=== PATIENT | male | born 1980 | race Caucasian/White ===

== ENCOUNTER 2020-10-14 14:44 | Emergency (ER) | payer SELFPAY ==
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
[2020-10-14] MEDS ORDERED: LORazepam 2 MG/ML VIAL ONE (18:23)
[2020-10-14] MEDS ORDERED: ONDANSETRON 4 MG/2 ML VIAL ONE (18:24)
[2020-10-14] MEDS ORDERED: MORPHINE 4 MG/ML SYR ONE (18:24)
[2020-10-14 18:32] LABS: Absolute Lymphocytes (CBC) 2.7 K/uL (0.7-4.9); Basophils % 0.9 % (0-1.3); Hematocrit 41.4 % (39.6-49.0); Lymphocytes % 30.3 % (15.3-44.8); MPV 8.2 fL (7.6-11.3); RBC Red Blood Cell Count 4.49 M/uL (4.33-5.43)
[2020-10-14 18:58] LABS: Blood Morphology Comment NOT SEEN (NOT SEEN); Platelet Estimate INCR; White Blood Cell Scan OK (OK)
--- NOTE | 2020-10-14 19:01 | EDPHYS ---
Physician Documentation [facility] Name: Cm Jiménez Age: 39 yrs Sex: Male : 1980 Arrival Date: 10/14/2020 Time: 14:46 Bed 29 Private MD: SELINA Physician Edwar Wilson HPI: 10/14 17:57 This 39 yrs old Male presents to ER via Wheelchair with complaints of spider jmm bite on foot. 17:57 The patient presents with pain. Onset: The symptoms/episode began/occurred gradually, 5 jmm day(s) ago. Modifying factors: The symptoms are alleviated by nothing, the symptoms are aggravated by nothing. Associated signs and symptoms: Pertinent positives: swelling, Pertinent negatives: fever. This is a 39 year old male with no chronic medical conditions that presents to the ED with complaints of left foot pain and erythema beginning approx 5 days ago. patient is currently taking doxyxyline and cephalexin. Patient complains of increased pain. Denies fever. . 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 Last tetanus immunization: up to date Flu vaccine is not up to date. - Social history:: Smoking status: Patient denies any tobacco usage or history of. ROS: 17:57 Constitutional: Negative for fever, chills, and weight loss, Cardiovascular: Negative jmm for chest pain, palpitations, and edema, Respiratory: Negative for shortness of breath, cough, wheezing, and pleuritic chest pain. 17:57 MS/extremity: Positive for swelling. 17:57 Skin: Positive for erythema. 17:57 All other systems are negative. Exam: 17:57 Constitutional: This is a well developed, well nourished patient who is awake, alert, jmm and in no acute distress. Head/Face: atraumatic. Eyes: EOMI, no conjunctival erythema appreciated ENT: Moist Mucus Membranes Neck: Trachea midline, Supple Chest/axilla: Normal chest wall appearance and motion. Cardiovascular: Regular rate and rhythm. No edema appreciated Respiratory: Normal respirations, no respiratory distress appreciated Abdomen/GI: Non distended, soft Back: Normal ROM 17:57 Skin: erythema noted to the left foot, non fluctuant abscess noted. 17:57 Neuro: Orientation: is normal, Mentation: is normal, Memory: is normal. 17:57 Psych: Behavior/mood is pleasant, cooperative. Vital Signs: 15:23 BP 106 / 85; Pulse 61; Resp 18; Temp 98.4(TE); Pulse Ox 99% on R/A; Weight 72.57 kg ca1 (R); Height 5 ft. 9 in. (175.26 cm) (R); Pain 9/10; 17:57 BP 110 / 90; Pulse 65; Resp 18; Temp 98.5(TE); Pulse Ox 100% on R/A; Pain 10/10; ld1 19:00 BP 122 / 86; Pulse 68; Resp 18; Pulse Ox 100% on R/A; ld1 15:23 Body Mass Index 23.63 (72.57 kg, 175.26 cm) ca1 MDM: 17:57 Patient medically screened. [facility] 18:58 Data reviewed: vital signs, nurses notes. Counseling: I had a detailed discussion with marah the patient and/or guardian regarding: the historical points, exam findings, and any diagnostic results supporting the discharge/admit diagnosis, lab results, the need for outpatient follow up, to return to the emergency department if symptoms worsen or persist or if there are any questions or concerns that arise at home. ED course: Patient is alert and non toxic in appearance in the ED. Advised to continue with oral abx and perform warm water soaks. Patient is otherwise given strict return precautions. Patient understood and agrees with the plan of care. . 10/14 17:59 Order name: CBC with Diff; Complete Time: 19:06 [facility] 10/14 17:59 Order name: BMP [facility] 10/14 17:59 Order name: Procalcitonin [facility] 10/14 17:59 Order name: Lactate [facility] 10/14 17:59 Order name: US Extrmty Nonvasular Limited [facility] 10/14 18:58 Order name: CBC Smear Scan; Complete Time: 19:06 [facility] 10/14 17:59 Order name: Saline Lock; Complete Time: 18:24 [facility] Administered Medications: 18:24 Drug: Ativan (LORazepam) 1 mg Route: IVP; Site: right antecubital; ld1 18:38 Follow up: Response: No adverse reaction ld1 18:24 Drug: Zofran (Ondansetron) 4 mg Route: IVP; Site: right antecubital; ld1 18:38 Follow up: Response: No adverse reaction ld1 18:24 Drug: morphine 4 mg Route: IVP; Site: right antecubital; ld1 18:38 Follow up: Response: No adverse reaction ld1 Disposition: 10/15 09:32 Co-signature as Attending Physician, Edwar Wilson MD I agree with the assessment and ramya plan of care. Disposition: 10/14/20 19:01 Discharged to Home. Impression: Cutaneous abscess of left foot. - Condition is Stable. - Discharge Instructions: Skin Abscess. - Prescriptions for orphenadrine citrate 100 mg Oral Tablet Sustained Release - take 1 tablet by ORAL route 2 times per day As needed; 20 tablet. - Medication Reconciliation Form, Thank You Letter, Antibiotic Education, Prescription Opioid Use form. - Follow up: Lawson Robison MD; When: 2 - 3 days; Reason: Recheck today's complaints, Continuance of care, Re-evaluation by your physician. - Notes: Please soak your fot in warm water 3 times a day for 20 minutes. Please return to the ED if symptoms worsen. Signatures: Dispatcher [employer] EDMS Edwar Wilson MD MD cha Mickail, Joel, PA PA jmm Acob, Cheryl, RN RN ca1 Dalia Riojas RN RN ld1 Corrections: (The following items were deleted from the chart) 10/14 19:17 19:01 10/14/2020 19:01 Discharged to Home. Impression: Cutaneous abscess of left foot. ld1 Condition is Stable. Forms are Medication Reconciliation Form, Thank You Letter, Antibiotic Education, Prescription Opioid Use. Follow up: Lawson Robison; When: 2 - 3 days; Reason: Recheck today's complaints, Continuance of care, Re-evaluation by your physician. marah
--- NOTE | 2020-10-14 19:01 | ER ---
Nurse's Notes 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 Went back and they prescribed another ABX. But last night, R foot started hurting real bad until now. Coronavirus screen: Client denies travel out of the [place] in the last 14 days. At this time, the client does not indicate any symptoms associated with coronavirus-19. Ebola Screen: Patient negative for fever greater than or equal to 101.5 degrees Fahrenheit, and additional compatible Ebola Virus Disease symptoms Patient denies exposure to infectious person. Patient denies travel to an Ebola-affected area in the 21 days before illness onset. No symptoms or risks identified at this time. Initial Sepsis Screen: Does the patient meet any 2 criteria? No. Patient's initial sepsis screen is negative. Does the patient have a suspected source of infection? No. Patient's initial sepsis screen is negative. Risk Assessment: Do you want to hurt yourself or someone else? Patient reports no desire to harm self or others. Onset of symptoms was October 14, 2020. 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 Last tetanus immunization: up to date Flu vaccine is not up to date. - Social history:: Smoking status: Patient denies any tobacco usage or history of. Screenin:57 Abuse screen: Denies threats or abuse. Denies injuries from another. Nutritional ld1 screening: No deficits noted. Tuberculosis screening: No symptoms or risk factors identified. Fall Risk None identified. Assessment: 17:57 General: Appears in no apparent distress. uncomfortable, Behavior is calm, cooperative, ld1 appropriate for age. Pain: Complains of pain in left foot Pain currently is 10 out of 10 on a pain scale. Quality of pain is described as burning, throbbing, Pain began 2-3 days ago. Is continuous. Neuro: Level of Consciousness is awake, alert, obeys commands, Oriented to person, place, time, situation. Cardiovascular: Capillary refill < 3 seconds Patient's skin is warm and dry. Respiratory: Airway is patent Respiratory effort is even, unlabored, Respiratory pattern is regular, symmetrical. GI: Abdomen is flat, non-distended. : No signs and/or symptoms were reported regarding the genitourinary system. EENT: No signs and/or symptoms were reported regarding the EENT system. Derm: Abscess located on left foot Reports increased pain that is 10 out of 10 on a pain scale. Musculoskeletal: No signs and/or symptoms reported regarding the musculoskeletal system. 19:00 Reassessment: Patient and/or family updated on plan of care and expected duration. Pain ld1 level reassessed. Patient is alert, oriented x 3, equal unlabored respirations, skin warm/dry/pink. Pt waiting on results. No concerns at this time. Vital Signs: 15:23 BP 106 / 85; Pulse 61; Resp 18; Temp 98.4(TE); Pulse Ox 99% on R/A; Weight 72.57 kg ca1 (R); Height 5 ft. 9 in. (175.26 cm) (R); Pain 9/10; 17:57 BP 110 / 90; Pulse 65; Resp 18; Temp 98.5(TE); Pulse Ox 100% on R/A; Pain 10/10; ld1 19:00 BP 122 / 86; Pulse 68; Resp 18; Pulse Ox 100% on R/A; ld1 15:23 Body Mass Index 23.63 (72.57 kg, 175.26 cm) ca1 ED Course: 14:46 Patient arrived in ED. am2 15:32 Triage completed. ca1 15:33 Arm band placed on right wrist. ca1 17:48 Dalia Riojas RN is Primary Nurse. ld1 17:50 Nando Mon PA is PHCP. jmm 17:50 Edwar Wilson MD is Attending Physician. jmm 17:57 Patient has correct armband on for positive identification. Call light in reach. ld1 17:57 No provider procedures requiring assistance completed. ld1 18:25 Inserted saline lock: 22 gauge in right antecubital area, using aseptic technique. ld1 Blood collected. 18:58 US Extrmty Nonvasular Limited In Process Unspecified. EDMS 19:00 Lawson Robison MD is Referral Physician. m 19:17 IV discontinued, intact, bleeding controlled, No redness/swelling at site. ld1 Administered Medications: 18:24 Drug: Ativan (LORazepam) 1 mg Route: IVP; Site: right antecubital; ld1 18:38 Follow up: Response: No adverse reaction ld1 18:24 Drug: Zofran (Ondansetron) 4 mg Route: IVP; Site: right antecubital; ld1 18:38 Follow up: Response: No adverse reaction ld1 18:24 Drug: morphine 4 mg Route: IVP; Site: right antecubital; ld1 18:38 Follow up: Response: No adverse reaction ld1 Outcome: 19:01 Discharge ordered by [facility] 19:16 Discharged to home with crutches. ld1 19:16 Condition: stable 19:16 Discharge instructions given to patient, Instructed on discharge instructions, follow up and referral plans. medication usage, Demonstrated understanding of instructions, follow-up care, medications. 19:17 Patient left the ED. ld1 Signatures: Dispatcher [employer] EDMS Nando Mon PA PA Olivia Dixon Cheryl, RN RN ca1 Dibbern, Lauren, RN RN ld1
[2020-10-14 19:11] LABS: BUN Blood Urea Nitrogen 11 mg/dL (7-18); Bicarbonate 30 mmol/L (21-32); Glucose Level 56 mg/dL (74-106); Potassium 4.5 mmol/L (3.5-5.1); Sodium Level 140 mmol/L (136-145)
--- NOTE | 2020-10-14 19:20 | RAD REPORT ---
EXAM DESCRIPTION: US - Extremity Nonvascular Limited - 10/14/2020 6:58 pm CLINICAL HISTORY: swelling, evaluate for abscess, foot pain COMPARISON: No comparisons FINDINGS: Sonographic evaluation of the symptomatic foot performed. Edematous soft tissues are ident ifiable but no abscess or drainable fluid collection identified. IMPRESSION: No abscess identified.
[2020-10-14 19:38] VITALS: TEMP 98.5; O2SAT 100
[2020-10-14 19:39] VITALS: BP 122/86
== END 2020-10-14 19:17 | disposition home or self-care (01) ==
LOC: ER 14:44
DX: L02.612 Cutaneous abscess of left foot (principal); Z88.2 Allergy status to sulfonamides; Z88.8 Allergy status to other drugs, medicaments and biological substances
CPT/HCPCS: 36415; 76882; 80048; 83605; 84145; 85025; 96374; 96375; 99284; J2405

== ENCOUNTER 2020-11-01 14:39 | Emergency (ER) | payer SELFPAY ==
--- OUTSIDE RECORDS SUMMARY | 2020-11-01 14:42 | XMS REPORT | Continuity of Care Document ---
:1980 Author Organization [facility] t Address [address] [place] [address] Support Name Relationship Address Phone DOWNUM, (FRIEND) Unavailable [address] [phone] [place] [address] DOWNUM Unavailable [address] [phone] [place] [address] TERI Unavailable [address] [phone] [place] [address] DOWNUM Unavailable [address] [place] [address] NONE Unavailable [address] [place] [address] ERNESTINA HILTON MD L Primary Care Physician [address] [place] [address] JENNIFER HILTON, C Emergency Provider [address] [facility] [phone] [place] [address] DESAI Next of Kin [address] [place] [address] LINA HILTON Emergency Provider [address] [place] [address] DOWNUM Next of Kin [address] [place] [address] ADRIANO HILTON Emergency Provider [address] [place] [address] MD MAL A Emergency Provider [address] [facility] [place] [address] DESAI Unavailable [address] [place] [address] MD Donal GODOY Emergency Provider [address] [place] [address] MD CHRISTIANO Emergency Provider [address] [facility] [phone] [place] [address] MD ERNESTINA L Primary Care Physician [address] [place] [address] DESAI Unavailable [address] [place] [address] MD BABAK R Emergency Provider [address] [place] [address] Care Team Providers Name Role Phone Rudy HILTON Primary Care Physician Srikanth HILTON, Sharon Attending Clinician Terri HILTON, Paul Attending Clinician Reji HILTON, Moira Attending Clinician Ortega HILTON Attending Clinician Abel HILTON, Philip Attending Clinician Jonathon HILTON, Yassine Attending Clinician SRIKANTH Admitting Clinician Unavailable Payers Payer Name Policy Type Policy Effective Date Expiration Date Sour Number [facility] [id number] 2019 [facility]-PresentHMO Problems Condition Condition Condition Status Onset [...] st 00 PTSD PTSD Disease Active 2019-06 [place] (post-trau (post-trau 06-17 Me thodi matic matic 00:00: st stress stress 00 disorder) disorder) Anxiety Anxiety Disease Active 2019-06 [place] 06-17 Methodi 00:00: st 00 Leucocytos Leucocytos [...] to drug Sulfamet Propensi Active Hallucinatio 2019-06 [place] hoxazole ty to ns 06-17 [facility] -Trimeth adverse 00:00: st oprim reaction 00 s to drug Sulfa DA Active [facility] (Sulfona - [facility] 00:00: [facility] 00 [facility] Social History Social Habit Start Date Stop Date Quantity Comments Source Sex Assigned At [birth year] [place] M ethodist 00:00:00 00:00:00 Medications Ordered Filled Start [...] 4mg Q8H Take 1 [place] ODT -08 tablet (4 [facility] (ZOFRAN-ODT 00:00: mg total) s t ) 4 MG 00 by mouth disintegrat every 8 ing tablet (eight) hours as needed for nausea or vomiting. sennosides- 2019-06 Yes 2{tbl} Q12H Take 2 [place] docusate -08 tablets by Metho di sodium 00:00: mouth st (SENOKOT-S) 00 every 12 8.6-50 mg (twelve) per tablet hours as needed for constipati on. pantoprazol 2019-06 2020- No 40mg QD Take 1 Ezra ston e 06-19 tablet (40 [facility] (Protonix) 00:00: 23:59 mg total) s t 40 MG EC 00 :00 by mouth tablet daily for 14 days. clindamycin 2019-06 2020- No 450mg Q.[id number] Take 3 [place] (CLEOCIN) 06-19-20 [id number] capsules [facility] 150 MG 00:00: 23:59 3D ([address] capsule 00 :00 total) by mouth 3 (three) times a day for 12 days. levoFLOXaci 2019-06- No 750mg QD Take 1 Luis Felipe sutton 06-19 tablet [facility] (Levaquin) 00:00: 23:59 ([address] 750 MG 00 :00 total) by tablet mouth daily for 12 days. cyclobenzap 2019-06- No 5mg Q.[id number] Take 1 [place] rine 06-19 [id number] tablet (5 Met hodi (FLEXERIL) 00:00: 23:59 3D mg total) s t 5 mg tablet 00 :00 by mouth 3 (three) times a day as needed for muscle spasms for up to 5 days. acetaminoph 2019-06- No acute pain 2{tbl} Q6H Take 2 [place] en-codeine 06-19 tablets by Pa anahy (TYLENOL 00:00: 23:[address] WITH 00 :00 every 6 CODEINE #3) (six) 300-30 mg hours as per tablet needed for severe pain for up to 3 days .acute pain. Vital Signs Vital Name Observation Time Observation Value Comments Source Systolic blood 2020-04-19 15:20:51 112 mm[Hg] [facility]to n [facility] pressure Diastolic blood 2020-04-19 15:20:51 63 mm[Hg] Blanka on [facility] pressure Heart rate 2020-04-19 15:20:51 84 /min Valentin Jaramillo Body temperature 2020-04-19 15:20:51 36.28 Marisol [facility] Respiratory rate 2020-04-19 15:20:51 16 /min [facility] Oxygen saturation in 2020-04-19 15:20:51 97 /min Valentin Jaramillo Arterial blood by Pulse oximetry Body height 2020-04-18 08:21:00 175.3 cm Valentin Jaramillo Body weight 2020-04-18 08:21:00 81.647 kg Valentin Jaramillo BMI 2020-04-18 08:21:00 26.58 kg/m2 Valentin Jaramillo Procedures Procedure Date / Time Performing Clinician Source Performed CBC WITH PLATELET AND 2020-04-19 05:57:00 Westley Holt [facility] DIFFERENTIAL COMPREHENSIVE METABOLIC 2020-04-19 05:57:00 Екатерина Candelario PANEL MAGNESIUM LEVEL 2020-04-19 05:57:00 Екатерина Candelario PHOSPHORUS LEVEL 2020-04-19 05:57:00 Екатерина Candelario ESTIMATED GFR 2020-04-19 05:57:00 Екатерниа Candelario ECG 12-LEAD 2020-04-18 17:06:35 Екатерина Candelario VANCOMYCIN LEVEL, TROUGH 2020-04-18 14:36:00 Holt, Westley Jaramillo ANAEROBIC CULTURE 2020-04-18 08:55:00 Holt, Westley Jaramillo FUNGUS CULTURE 2020-04-18 08:55:00 Holt, Westley Hanson M [facility]ist AFB CULTURE 2020-04-18 08:55:00 Holt, Westley Hanson M [facility]ist FUNGUS SMEAR 2020-04-18 08:55:00 Holt, Westley Hanson M [facility]ist AFB STAIN 2020-04-18 08:55:00 Holt, Westley [facility]on [facility] TISSUE CULTURE 2020-04-18 08:55:00 Holt, Westley Hanson M [facility]ist VA AN ELECTIVE 2020-04-18 08:39:42 Aditi Spann Meth odist SUPRAGLOTTIC AIRWAY HAND/FINGER DEEP I&D, BONE 2020-04-18 08:27:00 Westley Holt Cha CBC WITH PLATELET AND 2020-04-18 06:30:00 Westley Holt [facility] DIFFERENTIAL COMPREHENSIVE METABOLIC 2020-04-18 06:30:00 Екатерина Candelario PANEL MAGNESIUM LEVEL 2020-04-18 06:30:00 Екатерина Candelario PHOSPHORUS LEVEL 2020-04-18 06:30:00 Екатерина Candelario PROTHROMBIN TIME WITH INR 2020-04-18 06:30:00 Glenn Candelario i ESTIMATED GFR 2020-04-18 06:30:00 Madison Mendoza [facility] MRI UPPER EXTREMITY W WO 2020-04-17 23:54:05 HoltWestley sutton CONTRAST RIGHT X RAYS NO CHARGE MRI 2020-04-17 18:34:40 Guy Ruiz on [facility] URINE CULTURE 2020-04-17 08:32:00 Srikanth, Federicocarlos Sharon Hanson [facility] URINALYSIS SCREEN AND 2020-04-17 08:32:00 SrikanthFedericocarlos Sharon akins [facility] MICROSCOPY, WITH REFLEX TO CULTURE BLOOD CULTURE, AEROBIC & 2020-04-17 03:10:00 SrikanthBelem [facility] ANAEROBIC BLOOD CULTURE, AEROBIC & 2020-04-17 02:35:00 SrikanthBelem [facility] ANAEROBIC HC COMPLETE BLD COUNT 2020-04-17 02:35:00 Belem Duke [facility] W/AUTO DIFF PROTHROMBIN TIME WITH INR 2020-04-17 02:35:00 Belem Duke PARTIAL THROMBOPLASTIN 2020-04-17 02:35:00 Belem Duke [facility] TIME (PTT) URIC ACID LEVEL 2020-04-17 02:35:00 Belem Duke Pa [facility]odist PHOSPHORUS LEVEL 2020-04-17 02:35:00 Srikanth Belem Hanson M ethodist PREALBUMIN LEVEL 2020-04-17 02:35:00 Srikanth Belem Hanson M [facility]ist THYROID STIMULATING 2020-04-17 02:35:00 Belem Duke n [facility] HORMONE T4, FREE 2020-04-17 02:35:00 Belem Duke Pa [facility] MAGNESIUM LEVEL 2020-04-17 02:35:00 Belem Duke [facility] LIPID PANEL 2020-04-17 02:35:00 Belem Duke Pa [facility] LIPASE LEVEL 2020-04-17 02:35:00 Belem Duke Pa [facility] LACTIC ACID LEVEL 2020-04-17 02:35:00 Belem Duke HEMOGLOBIN A1C 2020-04-17 02:35:00 Belem Duke [facility] COMPREHENSIVE METABOLIC 2020-04-17 02:35:00 Belem Duke [facility] PANEL CREATINE KINASE, TOTAL 2020-04-17 02:35:00 Belem Duke chandana [facility] (CPK) AMYLASE LEVEL 2020-04-17 02:35:00 Belem Duke Pa [facility] ESTIMATED GFR 2020-04-17 02:35:00 Belem Duke [facility] Plan of Care Planned Activity Planned Date Details Comments Source Future Scheduled 2021-01-10 INFLUENZA VACCINE [facility]to n [facility] Test 00:00:00 [code = INFLUENZA VACCINE] Future Scheduled 1999-11-22 Hepatitis C Hanson Met [facility]odist Test 00:00:00 screening (procedure) [code = 321210430] Future Scheduled 1993 COVID-19 VACCINE (1) Ezra ellington [facility] Test 00:00:00 [code = COVID-19 VACCINE (1)] Encounters Start End Encounter Admission Attending Care Care Encounter Source Date/Time Date/Time Type Type Clinicians Facility Department ID 2020-04-17 2020-04-19 Inpatient [facility] [id number] [place] 00:00:00 00:00:00 ЕКАТЕРИНА [address] Results Test Description Test Time Test Comments Results Result Comments Source AFB culture 2020-05-30 12:13:09 Test Item Value Reference Range Interpretation Comme nts AFB culture isolate No growth after 6 weeks of Specimen InformationSpecimen (test code = 543-9) incubation. Source: TissueSpecimen Site: Hand: right dixie g finger abscess Valentin Jaramillo- XR HAND 3+V [id number] 00:30:00 [facility] 1980 Sex: M Patient Name: GENE BROOKS Unit No: [id number] EXAMS: CPT CODE: [id number] XR HAND 3+V RT [id number] Reason: hand injury PROCEDURE INFO RMATION: Exam: [...] ([email or web address].[email or web address] Bethea Print D/T: S: 05/20/2020 (29) [facility] ore NAME: GENE BROOKS [address] PHYS: Mayank Juarez MD [address] : 1980 AGE: 39 SEX: M [place], [place] [address] LOC: D.PER PHONE #: [phone] EXAM DATE: 05/20/2020 STATUS: PRE ER FAX #: RAD NO: DC Dt: PAGE 1 Signed ReportFungus [id number] 12:15:07 Test Item Value Reference Range Interpretation Comments Fungus culture No growth Specimen isolate (test after 4 weeks InformationSp ecimen code = 1441) of Source: TissueS pecimen incubation. Site: Hand: rig ht long finger abscess [place] MethodistAnaerobic [id number] 09:06:55 Test Item Value Reference Range Interpretation Comments Anaerobic No anaerobic Specimen culture isolate organisms InformationS pecimen (test code = isolated. Source: TissueS pecimen 552) Site: Hand: rig ht long finger abscess Hanson MethodistAFB [id number] 13:45:27 Test Item Value Reference Range Interpretation Comments AFB stain No acid fast Specimen (test code = bacilli (AFB) InformationSpe cimen 676-7) seen. Source: TissueS pecimen Site: Hand: rig ht long finger abscess [place] MethodistFungus [id number] 13:45:27 Test Item Value Reference Range Interpretation Comments Fungus smear No fungi Specimen (test code = observed. InformationSpec imen Source: 1443) TissueSpecimen Site: Hand: right long fing er abscess [place] MethodistGram [id number] 13:45:27Gram stain isolateRare WBC'sNo organisms seen Comment: Specimen InformationSpecimen Source: TissueSpecimen Site: Hand: right long finger abscess [facility] MethodistECG 12 [id number] 07:04:34 Test Item Value Reference Range Interpretation Comments Ventricular rate (test 49 code = 253) Atrial rate (test code = 49 255) VA interval (test code = 144 266) QRSD [...] MD (2064) on 04/20/2020 7:04:30 AM Hanson [id number] 08:39:42Aditi Spann CRNA 04/18/2020 8:40 AMAirway Date/Time: 04/18/2020 8:33 AMPerformed by: Aditi Spann CRNAAuthorized by: Kory Roman MD Location: ORUrgency: ElectiveDifficult Airway: No Anesthesiologist: Kory Roman, MDResident/FRANCHISE BROKER/AA: Aditi Spann CRNAPreoxygenated with 100% O2: Yes [...] is also susceptibility artifact involving the index finger.Hanson MethodistXR Rays No Charge [id number] 18:43:44Hm Interface, Radiology Results Incoming - 04/17/2020 6:46 PM CST EXAMINATION: X RAYS NO CHARGE MRICLINICAL HISTORY: right third finger infectionCOMPARISON: NoneIMPRESSION:3 views of the hand.Chronic deformity and shortening at the fourth distal metacarpal with associated metallic fragments at the soft tissues and within the bone. No acute fracture. Prominent soft tissues at the dorsum of the hand.[id number] MethodistUrine [id number] 09:55:05 Test Item Value Reference Range Interpretation Comments Urine culture (test SEE COMMENT Bacteriu sebastien screen code = 2762532) negative. [place] [facility]- XR SHOULDER 2+V [id number] 12:09:00 Patient Name: GENE BROOKS JR Unit No: [id number] EXAMS: CPT CODE: [id number] XR SHOULDER 2+V [place] [id number] Reason: LEFT ANTERIOR SHOULDER/CLAVICLE PAIN 3 views of the left shoulder demonstrate a chronic, diffuse fracture of the mid to distal clavicle. Shoulder joint andAC joints are intact. No acute fracture or dislocation is identified. IMPRESSION: 1. Remote left clavicular fracture, no acute cardiopulmonary findings at 1209 Reported and signed by: Attila Hernandez MD CC: Isela Adams WEIGHT REDUCING TECHNICIAN; Eusebio Herrera MD Technologist: JULIO CARRIZALES CT Trscrpt Dt/ (1200)tWUDKW Orig Print D/T: S: 10/26/2018 (0029) [place] NAME: GENE BROOKS JR [address] [place] [address] PHYS: BRIDGET.Vaishnavi - Eusebio Tavarez [address] : 1980 AGE: 37 SEX: M [place], [place] [address] LOC: MISSY PHONE #: [phone] EXAM DATE: 10/26/2018 STATUS: REG ER FAX #: RAD NO: DC Dt: PAGE 1 Signed Report
[2020-11-01] MEDS ORDERED: IBUPROFEN 400 MG TAB ONE (15:20)
[2020-11-01] MEDS ORDERED: HYDROCODONE/APAP 7.5/325 MG TAB ONE (15:20)
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
[2020-11-01 16:02] VITALS: BP 121/76; TEMP 98.7; O2SAT 99
== END 2020-11-01 15:57 | disposition home or self-care (01) ==
LOC: ER 14:39
DX: K08.89 Other specified disorders of teeth and supporting structures (principal); F41.9 Anxiety disorder, unspecified; F17.210 Nicotine dependence, cigarettes, uncomplicated; Z88.1 Allergy status to other antibiotic agents; Z88.2 Allergy status to sulfonamides; Z88.7 Allergy status to serum and vaccine; Z88.8 Allergy status to other drugs, medicaments and biological substances
CPT/HCPCS: 99282

== ENCOUNTER 2021-09-07 10:54 | Emergency (ER) | payer OTHER ==
--- OUTSIDE RECORDS SUMMARY | 2021-09-07 10:57 | XMS REPORT | Continuity of Care Document ---
:1980 Author Organization [facility] t Address [address] [place] [address] Support Name Relationship Address Phone Chandler Eli [address] [place] [address] ERNESTINA HILTON MD L Primary Care Physician [address] [place] [address] JENNIFER HILTON, C Emergency Provider [address] [facility] [place] [address] CHANDLER Next of Kin [address] [place] [address] LINA HILTON Emergency Provider [address] [place] [address] DOWN[place] Next of Kin [address] [place] [address] ADRIANO HILTON Emergency Provider [address] [place] [address] MD MAL A Emergency Provider [address] [facility] [place] [address] DESAI Unavailable [address] [place] [address] MD WALT L Emergency Provider [address] [place] [address] MD CHRISTIANO Emergency Provider [address] [place] [address] MD ERNESTINA L Primary Care Physician [address] [phone] [place] [address] DESAI Unavailable [address] [place] [address] MD BABAK R Emergency Provider [address] [place] [address] DOWN[place], (FRIEND) Unavailable [address] [phone] [place] [address] TERI Unavailable [address] [phone] [place] [address] DOWNUM Unavailable [address] [place] [address] NONE Unavailable [address] [place] [address] Care Team Providers Name Role Phone Walt HILTON Primary Care Physician MIKALA SALAZAR Attending Clinician Unavailable Saumya PACMikala Attending Clinician Allan MEJIA, T Attending Clinician Unavailable Boris WORD PROCESSOR OPERATOR, G Attending Clinician Ureña EMNP, R Attending Clinician UREÑA, R Attending Clinician Unavailable Doctor Unassigned, Name Attending Clinician Unavailable Srikanth HILTON, Sharon Attending Clinician Paul Murray MD Attending Clinician Moira Mendoza MD Attending Clinician Andree HILTON Attending Clinician Abel HILTON, Philip Attending Clinician Jonathon HILTON, Yassine Attending Clinician Physician, Primary or Family Admitting Clinician Unavailabl e MIKALA SALAZAR Admitting Clinician Unavailable SRIKANTH Admitting Clinician Unavailable Payers Payer Name Policy Type Policy Number Effective Date Expiration Date S ource Problems Condition Condition Condition Status Onset Resolution Last Treating Co mments Source Name Details Category Date Date Treatment Clinician Date PTSD PTSD Disease Active 2019-06 Method[facility] (post-trau (post-trau 06-17 matic matic 00:00: Hospita stress stress 00 l disorder) disorder) Anxiety Anxiety Disease Active 2019-06 [facility] 06-17 00:00: Hospita 00 l Leucocytos Leucocytos Disease Active 2019-06 M ethodi is is 06-17 00:00: Hospita 00 l Cellulitis Cellulitis Disease Active 2019-06 M ethodi of hand of hand 06-17 00:00: Hospita 00 l Abscess of Abscess of Disease Active 2019-06 M ethodi finger of finger of 06-17 st right hand right hand 00:00: Ho spita 00 l No known No known Disease Unive rs active active ity of problems problems [facility] [place] Allergies, Adverse Reactions, Alerts Allergy Allergy Status Severity Reaction(s) Onset Inactive Treating Comm ents Source Name Type Date Date Clinician Cycloben Propensi Active Diarrhea Univ ers zaprine ty to 12-10 ity of adverse 00:00: [place] reaction 00 Medical s Branch Sulfa Propensi Active Unknown - Unive rs (Sulfona ty to See comments 12-10 it y of mide adverse 00:00: [place] Antibiot reaction 00 Medica l ics) s Branch Tramadol Propensi Active Hallucinatio Univers ty to ns 12-10 ity of adverse 00:00: [place] reaction 00 Medical s Branch CYCLOBEN DRUG Active Diarrhea Univer s ZAPRINE INGREDI 12-10 ity of 00:00: [place] [facility] SULFA Drug Active Unknown-Cmnt Univ ers (SULFONA Class 12-10 ity of MIDE 00:00: [place] ANTIBIOT Medical ICS) Branch TRAMADOL DRUG Active Hallucinates Un miguel INGREDI 12-10 ity of 00:00: [place] 00 Medical Branch Influenz Propensi Active Itching 2019-06 Metho di a Virus ty to 06-17 st Vaccines adverse 00:00: Hospita reaction 00 l s to drug Predniso Propensi Active Other (See 2019-06 Causes Me thodi ne ty to Comments) 06-[address] adverse 00:00: Hospita reaction 00 l s to drug Sulfamet Propensi Active Hallucinatio 2019-06 Methodi hoxazole ty to ns 06-17 st -Trimeth adverse 00:00: Hospita oprim reaction 00 l s to drug Sulfa DA Active U 2016- [facility] (Sulfona -[facility] [place] 00:00: [facility] Antibiot 00 Medical ics) Center Sulfa DA Active U CONFUSION [facility] (Sulfona -13 [place] [place] 00:00: [facility] Antibiot Medical ics) Center Penicill Propensi Active 2003-06 Univer s ins ty to 07-04 ity of adverse 00:00: [place] reaction 00 Medical s Branch PENICILL Drug Active 2003-06 Univers INS Class - ity of 00:00: [place] 00 Medical Branch Social History Social Habit Start Date Stop Date Quantity Comments Source Exposure to Not sure [facility] SARS-CoV-2 (event) Medica l Branch Sex Ass[birth year] At [birth year] [facility] of [place] 00:00:00 00:00:00 Medical Branch Smoking Status Start Date Stop Date Source Unknown if ever smoked [facility] Medications Ordered Filled Start Stop Current Ordering Indication Dosage Frequency Signature Comments Components Source Medication Medication Date Date Medication? Clinician (SIG) Name Name HYDROcodone No 1{tbl} 1 tablet, Univers -acetaminop 07-09 Oral, ity of hen (NORCO) 04:00: 02:59 [place]CE[place] 1 [place] 10-325 mg 00 :00 dose, On Medica l tablet u Branch tablet 07/08/21 at 2200, Routine ketorolac No 15mg 15 mg, Unive rs (TORADOL) 07-09 Slow IV ity of injection 00:30: 23:41 Push, [place] 15 mg 00 :00 ONCE, 1 Medical dose, On Branch Giovanna 07/08/21 at 1830, HUGH
Fa culty member approving Restricted medication : Angeli SALAZAR NaCl 0.9% 2021- No 1000mL at 999 Uni vers (NS) bolus 07-08 mL/hr, ity of infusion 22:30: 02:59 1,000 mL, Guido as 1,000 mL 00 :00 IV Medical Infusion, Branch ONCE, 1 dose, On Giovanna 07/08/21 at 1630, STAT ceFAZolin No 2000mg 2 g (2,000 Univers in 0.9% 07-08 mg), IV ity of sodium 22:30: 23:00 [place]gy[place] chloride 00 :00 ONCE, 1 Medical (ANCEF) 2 dose, On Branch gram/100 mL Giovanna RTU 2 g 07/08/21 at 1630, Administer over 30 Minutes
Reason for Anti-Infec tive: Documented Infection< br>Jonas rodriguez Infection Site: Joint<br&g t;Duration of Therapy: Other (see Comments) ondansetron 2021- No 4mg 4 mg, Slow Univers (ZOFRAN 07-08 IV Push, ity of (PF)) 22:30: 22:30 ONCE, 1 [place] injection 4 00 :00 dose, On Medi zeinab mg Giovanna Branch 07/08/21 at 1630, HUGH morpHINE No 4mg 4 mg, Slow Un miguel injection 4 07-08 IV Push, ity of mg 22:30: 22:30 ONCE, 1 [place] 00 :00 dose, On Medical Giovanna Branch 07/08/21 at 1630, STAT ibuprofen Yes [id number] 600mg Take 1 Univers 600 mg 07-08 [id number] tablet by ity of tablet 00:00: mouth [place] 00 every 6 Medical (six) Branch hours as needed for Pain (scale 4-6). cephALEXin 2021- Yes [id number] 500mg Take 1 Univers (KEFLEX) 07-08 [id number] capsule by it y of 500 mg 00:00: 05:59 mouth 3 [place] capsule 00 :00 (three) Medical times Branch daily for 10 days. acetaminoph 2021- No 1000mg 1,000 mg, Univers en 07-05 Oral, ity of (TYLENOL) 23:45: 22:40 ONCE, 1 [place] tablet 00 :00 dose, On Medical 1,000 mg Mon Branch 07/05/21 at 1745, HUGH ibuprofen Yes [id number] 600mg Take 1 U nivers 600 mg -24 tablet by ity of tablet 00:00: mouth [place] 00 every 6 Medical (six) Branch hours as needed for Pain (scale 4-6). benzonatate Yes [id number] 100mg Take 1 Univers 100 mg 24 capsule by ity of capsule 00:00: mouth 3 [place] 00 (three) Medical times Branch daily as needed for Cough. ondansetron Yes [id number] 4mg Take 1 Univers (ZOFRAN) 4 24 tablet by ity of mg tablet 00:00: mouth [place] 00 every 8 Medical (eight) Branch hours as needed for Nausea and Vomiting (N/V). ibuprofen 2-0 Yes [id number] 600mg Take 1 U nivers 600 mg 1-24 tablet by ity of tablet 00:00: mouth [place] 00 every 6 Medical (six) Branch hours as needed for Pain (scale 4-6). benzonatate 2022-0 Yes [id number] 100mg Take 1 Univers 100 mg 1-24 capsule by ity of capsule 00:00: mouth 3 [place] 00 (three) Medical times Branch daily as needed for Cough. ondansetron 2021-0 Yes [id number] 4mg Take 1 Univers (ZOFRAN) 4 1-24 tablet by ity of mg tablet 00:00: mouth [place] 00 every 8 Medical (eight) Branch hours as needed for Nausea and Vomiting (N/V). ibuprofen 2021-0 Yes [id number] 600mg Take 1 U nivers 600 mg 1-24 tablet by ity of tablet 00:00: mouth [place] 00 every 6 Medical (six) Branch hours as needed for Pain (scale 4-6). benzonatate 2021-0 Yes [id number] 100mg Take 1 Univers 100 mg 1-24 capsule by ity of capsule 00:00: mouth 3 [place] 00 (three) Medical times Branch daily as needed for Cough. ondansetron 2021-0 Yes [id number] 4mg Take 1 Univers (ZOFRAN) 4 1-24 tablet by ity of mg tablet 00:00: mouth [place] 00 every 8 Medical (eight) Branch hours as needed for Nausea and Vomiting (N/V). ibuprofen 2020-2020- No 800mg 800 mg, Uni vers (IBU) 01-11 Oral, ity of tablet 800 02:45: 01:46 ONCE, 1 [place] as mg 00 :00 dose, Sun Medical 01/10/21 at Branch 2145, HUGH doxycycline 2020-0 2020- No 100mg 100 mg, U nivers hyclate 01-11 Oral, ity of (Vibramycin 02:45: 01:44 [place]CE, 1 [place] capsule 00 :00 dose, Sun Medic al 100 mg 01/10/21 at Branch 2145, HUGH
Re ason for Anti-Infec tive: Documented Infection< br>Documen michael Infection Site: Skin / Soft Tissue
Duration of Therapy: 7 days No known No Univers medications 01-10 ity of 21:23: [place] 49 Medical Branch doxycycline 2020- Yes [id number] 100mg Take 1 Univers hyclate 100 - capsule by it y of mg capsule 00:00: mouth 2 [place] 00 (two) Medical times Branch daily. doxycycline 2020- Yes [id number] 100mg Take 1 Univers hyclate 100 - capsule by it y of mg capsule 00:00: mouth 2 [place] 00 (two) Medical times Branch daily. doxycycline 2020- Yes [id number] 100mg Take 1 Univers hyclate 100 8- capsule by it y of mg capsule 00:00: mouth 2 [place] 00 (two) Medical times Branch daily. doxycycline 2020- Yes [id number] 100mg Take 1 Univers hyclate 100 - capsule by it y of mg capsule 00:00: mouth 2 [place] 00 (two) Medical times Branch daily. ibuprofen 2020- No [id number] 800mg Take 1 Univers 800 mg 01-10 tablet by ity of tablet 00:00: 04:59 mouth 3 [place] 00 :00 (three) Medical times Branch daily with meals for 7 days. ibuprofen 2020- No 600mg 600 mg, Uni vers (IBU) 12-10 Oral, ity of tablet 600 21:15: 20:16 ONCE, 1 [place] as mg 00 :00 dose, [facility] 12/10/20 at Branch 1615, HUGH chlorhexidi Yes [id number] 15mL Swish and Univers ne 0.12 % 12-10 spit out ity of mouthwash 00:00: 15 mL 2 [place] 00 (two) Medical times Branch daily. chlorhexidi 2020-0 Yes [id number] 15mL Swish and Univers ne 0.12 % 12-10 spit out ity of mouthwash 00:00: 15 mL 2 [place] 00 (two) Medical times Branch daily. chlorhexidi 2020-0 Yes [id number] 15mL Swish and Univers ne 0.12 % 12-10 spit out ity of mouthwash 00:00: 15 mL 2 [place] 00 (two) Medical times Branch daily. chlorhexidi Yes [id number] 15mL Swish and Univers ne 0.12 % 12-10 spit out ity of mouthwash 00:00: 15 mL 2 [place] 00 (two) Medical times Branch daily. chlorhexidi Yes [id number] 15mL Swish and Univers ne 0.12 % 12-10 spit out ity of mouthwash 00:00: 15 mL 2 [place] 00 (two) Medical times Branch daily. clindamycin 2020- No [id number] 300mg Take 1 Univers 300 mg 12-10 capsule by ity of capsule 00:00: 04:59 mouth 4 [place] 00 :00 (four) Medical times Branch daily for 10 days. acetaminoph 2020- No [id number] 1{tbl} Take 1 U nivers en-codeine 12-10 tablet by ity of 300-30 mg 00:00: 04:59 mouth [place] tablet 00 :00 every 6 Medical (six) Branch hours as needed for Pain (scale 7-10) for up to 7 days. Indication s: acute pain traMADoL 50 2020- No [id number] 50mg Take 1 Uni vers mg tablet 12-10 tablet by ity of 00:00: 00:00 mouth [place] 00 :00 every 6 Medical (six) Branch hours as needed for Pain (scale 7-10) for up to 7 days. Indication s: acute pain ALPRAZolam 2019-06 2020- No 1mg Q.5D Take 1 mg M ethodi (XANAX) 1 06-[address] MG tablet 23:14: 00:00 (two) Hospit a 42 :00 times a l day as needed for anxiety. ondansetron 2019-06 Yes 4mg Q8H Take 1 Meth asher ODT 1-08 tablet (4 st (ZOFRAN-ODT 00:00: mg total) H ospita ) 4 MG 00 by mouth l disintegrat every 8 ing tablet (eight) hours as needed for nausea or vomiting. sennosides- 2019-06 Yes 2{tbl} Q12H Take 2 Me thodi docusate 1-[address] sodium 00:00: mouth Hospita (SENOKOT-S) 00 every 12 l 8.6-50 mg (twelve) per tablet hours as needed for constipati on. pantoprazol 2019-06 No 40mg QD Take 1 Met hodi e 06-19 tablet (40 st (Protonix) 00:00: 05:59 mg total) H ospita 40 MG EC 00 :00 by mouth l tablet daily for 14 days. clindamycin 2019-06 No 450mg Q.[id number] Take 3 Methodi (CLEOCIN) 06-[id number] 150 MG 00:00: 05:59 3D (450 mg Hospita capsule 00 :00 total) by l mouth 3 (three) times a day for 12 days. levoFLOXaci 2019-06 No 750mg QD Take 1 Me thodi n 06-[address] (Levaquin) 00:00: 05:59 (750 mg Hos fareed 750 MG 00 :00 total) by l tablet mouth daily for 12 days. cyclobenzap 2019-06 No 5mg Q.[id number] Take 1 Methodi rine 06-19 [id number] tablet (5 st (FLEXERIL) 00:00: 05:59 3D mg total) H ospita 5 mg tablet 00 :00 by mouth 3 l (three) times a day as needed for muscle spasms for up to 5 days. acetaminoph 2019-06- No [id number] 2{tbl} Q6H Take 2 Methodi en-codeine 06-[address] (TYLENOL 00:00: 05:59 mouth Hospita WITH 00 :00 every 6 l CODEINE #3) (six) 300-30 mg hours as per tablet needed for severe pain for up to 3 days .acute pain. Vital Signs Vital Name Observation Time Observation Value Comments Source Systolic blood 2021-07-09 03:00:00 110 mm[Hg] Univer sity [facility] Diastolic blood 2021-07-09 03:00:00 71 mm[Hg] Unive [facility] Heart rate 2021-07-09 03:00:00 78 /min [facility] Oxygen saturation in 2021-07-09 03:00:00 96 /min University of Arterial blood by [facility] Pulse oximetry Branch Body temperature 2021-07-08 22:08:03 37.06 Marisol Univ ers[facility] [place] [facility] Respiratory rate 2021-07-08 22:08:03 18 /min [facility] [place] [facility] Body weight 2021-07-08 19:59:00 82.555 kg [facility]i [facility] [place] [facility] BMI 2021-07-08 19:59:00 26.88 kg/m2 [facility]i [facility] [place] [facility] Systolic blood 2021-07-05 22:21:00 114 mm[Hg] Univer sity of pressure [place] [facility] Diastolic blood 2021-07-05 22:21:00 81 mm[Hg] Unive rsity of pressure [place] [facility] Heart rate 2021-07-05 22:21:00 82 /min [facility]i [facility] [place] [facility] [place] Body temperature 2021-07-05 22:21:00 37.17 Marisol [facility] [place] [facility] Respiratory rate 2021-07-05 22:21:00 20 /min [facility] [place] [facility] Body weight 2021-07-05 22:21:00 82.555 kg [facility]i [facility] [place] [facility] BMI 2021-07-05 22:21:00 26.88 kg/m2 [facility] [place] [facility] Oxygen saturation in 2021-07-05 22:21:00 98 /min University of Arterial blood by [facility] Pulse oximetry Branch Systolic blood 2021-01-11 01:50:33 111 mm[Hg] Univer sity of pressure [place] [facility] Diastolic blood 2021-01-11 01:50:33 63 mm[Hg] Unive rsity of pressure [place] [facility] Heart rate 2021-01-11 01:50:33 75 /min [facility] [place] [facility] Respiratory rate 2021-01-11 01:50:33 16 /min Univ [facility] [place] [facility] Oxygen saturation in 2021-01-11 01:50:33 100 /min University of Arterial blood by [facility] Pulse oximetry Branch Body temperature 2021-01-10 23:11:00 37.11 Marisol [facility] [place] [facility] Body height 2021-01-10 23:11:00 175.3 cm [facility]i [facility] [place] [facility] [place] Body weight 2021-01-10 23:11:00 81.466 kg [facility] BMI 2021-01-10 23:11:00 26.52 kg/m2 [facility] 2020-12-10 19:02:00 118 mm[Hg] Univer sity of [facility] Diastolic blood 2020-12-10 19:02:00 83 mm[Hg] Unive rsity of [facility] Heart rate 2020-12-10 19:02:00 82 /min [facility] Body temperature 2020-12-10 19:02:00 37.06 Marisol [facility] rate 2020-12-10 19:02:00 20 /min [facility] Body height 2020-12-10 19:02:00 175.3 cm [facility] Body weight 2020-12-10 19:02:00 86.183 kg [facility] BMI 2020-12-10 19:02:00 28.06 kg/m2 [facility] Oxygen saturation in 2020-12-10 19:02:00 97 /min [facility] Arterial blood by [facility] Pulse oximetry Branch Systolic blood 2020-04-19 21:20:51 112 mm[Hg] [facility] pressure Diastolic blood 2020-04-19 21:20:51 63 mm[Hg] [facility] pressure Heart rate 2020-04-19 21:20:51 84 /min [facility] Body temperature 2020-04-19 21:20:51 36.28 Marisol [facility] Respiratory rate 2020-04-19 21:20:51 16 /min [facility] Oxygen saturation in 2020-04-19 21:20:51 97 /min [facility] Arterial blood by Pulse oximetry Body height 2020-04-18 14:21:00 175.3 cm [facility] Body weight 2020-04-18 14:21:00 81.647 kg [facility] BMI 2020-04-18 14:21:00 26.58 kg/m2 [facility] Procedures Procedure Date / Time Performing Clinician Source Performed XR KNEE 3 VW LEFT 2021-07-08 21:50:48 Angeli Salazar [facility] BLOOD CULTURE SCREEN 2021-07-08 21:47:00 Angeli Salazar [facility] Medical Branch MAGNESIUM 2021-07-08 21:47:00 Angeli Salazar Mikala [place] [facility] [place] COMP. METABOLIC PANEL 2021-07-08 21:47:00 Angeli Salazar [facility] ([id number]) Medical Branch CBC WITH DIFF 2021-07-08 21:47:00 Angeli Salazar [place] [facility] [place] LACTIC ACID WHOLE BLOOD 2021-07-08 21:41:00 Angeli Salazar [facility] CONSENT/REFUSAL FOR 2021-07-08 19:59:37 Doctor Unassradha, [facility] DIAGNOSIS AND TREATMENT [facility] [place] ASSIGNMENT OF BENEFITS 2021-07-05 22:52:55 Doctor Unassradha, [facility] Name Medical [place] RAPID INFLUENZA A/B 2021-07-05 22:35:00 Angeli Salazar [facility] CONSENT/REFUSAL FOR 2021-07-05 22:09:40 Doctor Cristela, [facility] DIAGNOSIS AND TREATMENT [place] [facility] CONSENT/REFUSAL FOR 2021-01-10 22:45:59 [facility] DIAGNOSIS AND TREATMENT [facility] [place] NOTICE OF PRIVACY 2020-12-10 18:59:29 Doctor Cristela, [facility] PRACTICES [facility] CONSENT/REFUSAL FOR 2020-12-10 18:57:34 Doctor Belkisradha, [facility] DIAGNOSIS AND TREATMENT [facility] [place] AUTHORIZATION FOR RELEASE 2020-11-04 05:01:00 Doctor Cristela, [facility] CBC WITH PLATELET AND 2020-04-19 11:57:00 Westley Holt Met [facility] [place] [facility] DIFFERENTIAL COMPREHENSIVE METABOLIC 2020-04-19 11:57:00 [facility] PANEL MAGNESIUM LEVEL 2020-04-19 11:57:00 [facility] PHOSPHORUS LEVEL 2020-04-19 11:57:[facility] 2020-04-19 11:57:00 [facility] ECG 12-LEAD 2020-04-18 23:06:35 [facility] VANCOMYCIN LEVEL, TROUGH 2020-04-18 20:36:00 Holt, [facility] ANAEROBIC CULTURE 2020-04-18 14:55:00 Holt, [facility] FUNGUS CULTURE 2020-04-18 14:55:00 Holt, [facility] AFB CULTURE 2020-04-18 14:55:00 Holt, [facility] GRAM STAIN 2020-04-18 14:55:00 Holt, [facility] AFB STAIN 2020-04-18 14:55:00 Holt, [facility] TISSUE CULTURE 2020-04-18 14:55:00 [facility], [facility] [place] AN ELECTIVE 2020-04-18 14:39:42 Aditi Spann Ho spital SUPRAGLOTTIC AIRWAY HAND/FINGER DEEP I&D, 2020-04-18 14:27:00 [facility] BONE CBC WITH PLATELET AND 2020-04-18 12:30:00 [facility] DIFFERENTIAL COMPREHENSIVE METABOLIC 2020-04-18 12:30:00 [facility] PANEL MAGNESIUM LEVEL 2020-04-18 12:30:00 [facility] PHOSPHORUS LEVEL 2020-04-18 12:30:00 [facility] [place] [facility] PROTHROMBIN TIME WITH INR 2020-04-18 12:30:00 [facility] ESTIMATED GFR 2020-04-18 12:30:00 [facility] Moira MRI UPPER EXTREMITY W WO 2020-04-18 05:54:05 [employer] CONTRAST RIGHT X RAYS NO CHARGE MRI 2020-04-18 00:34:40 Guy Ruiz [facility] URINE CULTURE 2020-04-17 14:32:00 [facility] URINALYSIS SCREEN AND 2020-04-17 14:32:00 [facility] MICROSCOPY, WITH REFLEX TO CULTURE BLOOD CULTURE, AEROBIC & 2020-04-17 09:10:00 Srikanth, Salman [facility] ANAEROBIC PREALBUMIN LEVEL 2020-04-17 08:35:00 Srikanth [facility] THYROID STIMULATING 2020-04-17 08:35:00 Srikanth [facility] HORMONE T4, FREE 2020-04-17 08:35:00 Srikanth [facility] MAGNESIUM LEVEL 2020-04-17 08:35:00 Srikanth [facility] LIPID PANEL 2020-04-17 08:35:00 Srikanth [facility] LIPASE LEVEL 2020-04-17 08:35:00 Srikanth [facility] LACTIC ACID LEVEL 2020-04-17 08:35:00 Srikanth [facility] HEMOGLOBIN A1C 2020-04-17 08:35:00 Srikanth [facility] COMPREHENSIVE METABOLIC 2020-04-17 08:35:00 [facility] PANEL CREATINE KINASE, TOTAL 2020-04-17 08:35:00 [facility] AMYLASE LEVEL 2020-04-17 08:35:00 Srikanth [facility] ESTIMATED GFR 2020-04-17 08:35:00 Srikanth [facility] BLOOD CULTURE, AEROBIC & 2020-04-17 08:35:00 [facility] ANAEROBIC HC COMPLETE BLD COUNT 2020-04-17 08:35:00 Srikanth [facility] W/AUTO DIFF PROTHROMBIN TIME WITH INR 2020-04-17 08:35:00 Srikanth [facility] PARTIAL THROMBOPLASTIN 2020-04-17 08:35:00 Srikanth, [facility] TIME (PTT) URIC ACID LEVEL 2020-04-17 08:35:00 Srikanth, [facility] PHOSPHORUS LEVEL 2020-04-17 08:35:00 Srikanth, [facility] Plan of Care Planned Activity Planned Date Details Comments Source Future Scheduled Test COVID-19 VACCINE (1) [facility] [code = COVID-19 VACCINE (1)] Future Scheduled Test Hepatitis C screening [facility] (procedure) [code = 667221242] Future Scheduled Test INFLUENZA VACCINE [facility] [code = INFLUENZA VACCINE] Encounters Start End Encounter Admission Attending Care Care Encounter Source Date/Time Date/Time Type Type Clinicians Facility Department ID 2020-05-20 Inpatient [facility] [id number] [facility] 02:30:00 [id number] [facility] 2020-05-19 Inpatient [facility] ER [id number] [facility] 23:52:00 [id number] [facility] 2021-07-08 2021-07-08 Emergency X Angeli SALAZAR [facility] ERT [id number] Univers 14:00:00 21:19:00 ity [facility] 2021-07-08 2021-07-08 Emergency Angeli Salazar [facility] [id number] Univers 14:00:00 21:19:00 Mikala CARRASCO [id number] i ty of [place] [id number] [place] [address] [id number] [place] [address] Branch 2021-07-06 2021-07-06 Letter KIP Lemus [id number] Univers 00:00:00 00:00:00 (Out) Ann Marie HINOJOSA 350.1.13.10 it y [facility] 4.2.7.2.68 Guido as [phone] [place] [address] [address] 2021-07-05 2021-07-05 Emergency X Angeli SALAZAR [facility] ERT [id number] Univers 16:22:00 17:22:00 ity [facility] 2021-07-05 2021-07-05 Emergency SaumyaAngeli [facility] 1.2.840.114 [id number] Univers 16:22:00 17:22:00 Mikala CARRASCO 350.1.13.10 i ty of [place] 4.2.7.2.[address] [facility] [phone] [place] [address] [address] 2021-01-10 2021-01-10 Emergency Boris [facility] 1.2.212.321 [id number] Univers 18:15:00 21:12:00 Kelley Carrasco 350.1.13.10 ity of [place] 4.2.7.2.686 [facility] [id number] [address] 2021-01-10 2021-01-10 Emergency X [facility] ERT [id number] Univers 17:45:00 17:45:00 ity of [facility] 2020-12-10 2020-12-10 Emergency [facility] 1.2.526.593 [id number] Univers 14:04:00 16:03:00 Javad Wiseman Eliezer 350.1.13.10 i ty of [place] 4.2.7.2.686 [facility] [id number] [address] 2020-12-10 2020-12-10 Emergency X [facility] ERT [id number] Univers 14:04:00 14:04:00 JAVAD ity of [facility] 2020-11-04 2020-11-04 Orders Doctor SHIN 1.2.840.114 [id number] Univers 00:00:00 00:00:00 Only Unassigned, ASHISH 350.1.13.[address] [place] [facility] 4.2.7.2.686 [facility] [phone] [place] [address] [address] 2020-04-17 2020-04-19 [facility] Duke 1.2.840.1 [id number] Methodi 00:59:00 17:14:00 Encounter Kannan Murray [address]3575.1.[address] [place], Chimi Moira 3.430.2.7 [facility] .[id number] l .8 2020-04-18 2020-04-18 Anesthesia Roman, 1.2.840.1 [id number] Methodi 08:27:00 09:18:00 Event Kory 04173.1.[address] Harshadkuma 3.430.2.7 Ho spita r .3.028142 l .8 2020-04-18 2020-04-18 Surgery Holt, 1.2.840.1 [id number] Methodi 08:00:00 09:05:[address] [place] 3.430.2.7 Hospit a .3.756755 l .8 Results Test Description Test Time Test Comments Results Result Comments Source CBC WITH DIFF 2021-07-08 22:38:22 Test Item Value Reference Range Interpretation Comme nts WBC (test code = 6690-2) See_Comment [A utomated message] The system which ge nerated this result transmit michael reference range: 4.20 - 1 0.70 10*3/?L. The reference r aurelio was not used to interpr et this result as normal/abnor mal. RBC (test code = 789-8) See_Comment [Au tomated message] The system which ge nerated this result transmit michael reference range: 4.26 - 5 .52 10*6/?L. The reference r aurelio was not used to interpr et this result as normal/abnor mal. HGB (test code = 718-7) 15.7 g/dL 12.2-16.4 HCT (test code = 4544-3) 47.6 % 38.4-49.3 MCV (test code = 787-2) 91.9 fL 81.7-95.6 MCH (test code = 785-6) 30.3 pg 26.1-32.7 MCHC (test code = 786-4) 33.0 g/dL 31.2-35.0 RDW-SD (test code = 67335-9) 42.9 fL 38.5-51.6 RDW-CV (test code =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
[2021-09-07] MEDS ORDERED: NA CHLORIDE 0.9% 1,000 ML ONE (11:33)
[2021-09-07] MEDS ORDERED: KETOROLAC 30 MG/ML INJ ONE (11:33)
[2021-09-07 11:38] LABS: Urine Blood 2+ (Negative); Urine Glucose Negative (Negative); Urine Protein Negative (Negative); Urine Specific Gravity >=1.030 (1.005-1.030)
--- NOTE | 2021-09-07 12:01 | RAD REPORT ---
EXAM DESCRIPTION: CTAbdomen Pelvis Wo Contrast - 09/07/2021 11:47 am CLINICAL HISTORY: FLANK PAIN COMPARISON: <Comparisons> TECHNIQUE: CT of the abdomen and pelvis was performed. All CT scans are performed using dose optimization technique as appropriate and may include automated exposure control or mA/KV adjustment according to patient size. FINDINGS: Lower chest: No acute abnormality. Liver: No acute abnormality or suspicious lesions. Biliary: No biliary ductal dilatation. Stomach: No significant focal abnormality. Duodenum: No significant focal abnormality. Pancreas: No significant abnormality. Spleen: Splenectomy with splenosis. Adrenal: No suspicious lesions. Kidney/ureter: 3 mm stone in the left proximal ureter without significant hydronephrosis. Retroperitoneum: No retroperitoneal adenopathy. Vascular: No aneurysm. Bowel: Large colonic stool burden. Patulous colon. No bowel obstruction. Peritoneum: No ascites or free air. Bladder: Circumferential bladder wall thickening which may be related to chronic bladder outlet obstr uction. Reproductive: Mild prostatomegaly. Bones: No acute fracture. Other: n/a IMPRESSION: 3 mm left proximal ureteral stone without significant hydronephrosis.
[2021-09-07 12:36] LABS: Absolute Lymphocytes (CBC) 2.3 K/uL (0.7-4.9); Hematocrit 43.3 % (39.6-49.0); Lymphocytes % 20.5 % (15.3-44.8); MPV 8.7 fL (7.6-11.3); RBC Red Blood Cell Count 4.64 M/uL (4.33-5.43)
[2021-09-07 12:47] LABS: Albumin 3.9 g/dL (3.4-5.0); Bilirubin Total 0.1 mg/dL (0.2-1.0); Potassium 5.1 mmol/L (3.5-5.1); Protein, Total 7.7 g/dL (6.4-8.2)
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
[2021-09-07] MEDS ORDERED: MORPHINE 4 MG/ML SYR ONE (13:38)
[2021-09-07 13:54] VITALS: TEMP 98.5; O2SAT 100
[2021-09-07 13:55] VITALS: BP 112/78
== END 2021-09-07 13:48 | disposition home or self-care (01) ==
LOC: ER 10:54
DX: N20.1 Calculus of ureter (principal); F17.210 Nicotine dependence, cigarettes, uncomplicated; Z88.1 Allergy status to other antibiotic agents; Z88.2 Allergy status to sulfonamides; Z88.7 Allergy status to serum and vaccine; Z88.8 Allergy status to other drugs, medicaments and biological substances
CPT/HCPCS: 96361; 85025; 36415; 81003; 80053; 74176; 96375; 96374; 99284; J7030